=== PATIENT | male | born 1985 | race African-American/Black ===

== ENCOUNTER 2017-12-22 05:21 | Inpatient (IN) | payer SELFPAY ==
[2017-12-22] MEDS ORDERED: ACETAMINOPHEN 325 MG TABLET PO ONE (06:52)
[2017-12-22] MEDS ORDERED: NORMAL SALINE 1000 ML 1,000 ML IV ONE (07:44)
[2017-12-22] MEDS ORDERED: KETOROLAC TROMETHAMINE INJ/PF 30 MG/1 ML SDV IV ONE (07:44)
[2017-12-22 08:25] LABS: HEMOGLOBIN 14.1 g/dL (13.5-17.0); MEAN CORPUSCULAR HEMOGLOBIN 31.3 pg (27.0-33.4); MEAN CORPUSCULAR HGB CONC 34.5 g/dL (32.0-36.0); MEAN CORPUSCULAR VOLUME 91 fl (80-97); PLATELET COUNT 358 10^3/uL (150-450); RED BLOOD COUNT 4.52 10^6/uL (4.35-5.55); RED CELL DISTRIBUTION WIDTH 13.1 % (11.5-14.0); WHITE BLOOD COUNT 20.7 10^3/uL (4.0-10.5)
[2017-12-22 08:40] LABS: ALANINE AMINOTRANSFERASE 50 U/L (21-72); ALBUMIN 4.1 g/dL (3.5-5.0); ALKALINE PHOSPHATASE 79 U/L (38-126); ANION GAP 11 (5-19); ASPARTATE AMINO TRANSFERASE 34 U/L (17-59); BILIRUBIN,DIRECT 0.6 mg/dL (0.0-0.4); BILIRUBIN,TOTAL 3.3 mg/dL (0.2-1.3); BLOOD UREA NITROGEN 11 mg/dL (7-20); CALCIUM 9.8 mg/dL (8.4-10.2); CARBON DIOXIDE 24 mmol/L (22-30); CHLORIDE 101 mmol/L (98-107); GLUCOSE 102 mg/dL (75-110); POTASSIUM 4.2 mmol/L (3.6-5.0); SODIUM 135.9 mmol/L (137-145); TOTAL PROTEIN 7.2 g/dL (6.3-8.2)
[2017-12-22 08:44] LABS: ABSOLUTE LYMPHOCYTES# (MANUAL) 2.7 10^3/uL (0.5-4.7); ABSOLUTE MONOCYTES # (MANUAL) 0.8 10^3/uL (0.1-1.4); ABSOLUTE NEUTROPHILS# (MANUAL) 17.2 10^3/uL (1.7-8.2); BASOPHILS % (MANUAL) 0 % (0-2); EOSINOPHILS % (MANUAL) 0 % (0-6); LYMPHOCYTES % (MANUAL) 11 % (13-45); MONOCYTES % (MANUAL) 4 % (3-13); SEGMENTED NEUTROPHILS % (MAN) 83 % (42-78); TOTAL CELLS COUNTED 100
[2017-12-22 08:45] LABS: PLATELET COMMENT ADEQUATE; RBC MORPHOLOGY COMMENT NORMO-CYTIC/CHROMIC
--- NOTE | 2017-12-22 08:58 | ER Document Report ---
ED GI Bleed / Rectal Pain - General Chief Complaint: Rectal Pain Stated Complaint: RECTAL PAIN Time Seen by Provider: 12/22/17 07:11 Mode of Arrival: Ambulatory Information source: Patient Notes: Patient is a 32-year-old male who identifies as female who presents to the ER today for rectal pain 2 days. Patient states that she has a history of rectal abscess in October of this past year that was treated in the hospital with IV antibiotics for approximately 4 days and hydrocortisone. Patient states that she was told that the abscess would not come back. Patient had anal intercourse last week and states that she has had worsening pain since that time. She states yesterday she went to have a bowel movement and "white stuff came out." Patient was supposed to fly back to [place] where she lives today but states that it hurts too much to sit down and did not feel like she can sit on a plane for the long. She denies any fever but admits to chills and sweats. She denies any history of Crohn's or any other medical history. She is not going through any type of surgical sexual change at this time. Not on steroids. TRAVEL OUTSIDE OF THE [place] IN LAST 30 DAYS: No - Related Data Allergies/Adverse Reactions: No Known Allergies Allergy (Unverified 12/22/17 06:20) Past Medical History - General Information source: Patient - Social History Smoking Status: Unknown if Ever Smoked Chew tobacco use (# tins/day): No Frequency of alcohol use: None Drug Abuse: None Family History: Reviewed & Not Pertinent Patient has suicidal ideation: No Patient has homicidal ideation: No Renal/ Medical History: Denies: Hx Peritoneal Dialysis Review of Systems - Review of Systems Constitutional: See HPI EENT: No symptoms reported Cardiovascular: No symptoms reported Respiratory: No symptoms reported Gastrointestinal: See HPI Genitourinary: No symptoms reported Male Genitourinary: No symptoms reported Musculoskeletal: No symptoms reported Skin: No symptoms reported Hematologic/Lymphatic: No symptoms reported Neurological/Psychological: No symptoms reported Physical Exam - Vital signs Vitals: Temp Pulse Resp BP Pulse Ox 98.8 F 109 H 20 135/73 H 98 12/22/17 05:28 12/22/17 05:28 12/22/17 05:28 12/22/17 05:28 12/22/17 05:28 - Notes Notes: PHYSICAL EXAMINATION: GENERAL: Well-appearing and in no acute distress. HEAD: Atraumatic, normocephalic. EYES: Pupils equal round and reactive to light, extraocular movements intact, sclera anicteric, conjunctiva are normal. NECK: Normal range of motion, supple without lymphadenopathy LUNGS: CTAB and equal. No wheezes rales or rhonchi. HEART: Regular rate and rhythm without murmurs ABDOMEN: Soft, no tenderness. No guarding, no rebound BACK: no vertebral tenderness, normal ROM rectal: good tone, tender to exam, no obvious fluctance or induration noted GI/: no CVA tenderness EXTREMITIES: Normal range of motion, no pitting edema. No cyanosis. NEUROLOGICAL: Cranial nerves grossly intact. Normal sensory/motor exams. PSYCH: Normal mood, normal affect. SKIN: Warm, Dry, normal turgor, no rashes or lesions noted Course - Re-evaluation Re-evalutation: 12/22/17 10:03 Patient has a white count of 20,000, CT with IV contrast was performed as external exam is unremarkable and perirectal abscess including the rectal wall and levator muscle was seen on CAT scan today. Dr. Hernandez, surgeon on-call came down and did evaluate patient, wants to take to the operating room. Patient given IV fluids, Rocephin and clindamycin. - Vital Signs Vital signs: Temp Pulse Resp BP Pulse Ox 100.2 F 90 20 97/45 L 93 12/22/17 16:59 12/22/17 16:59 12/22/17 16:59 12/22/17 16:59 12/22/17 16:59 - Laboratory Result Diagrams: 12/22/17 08:01 12/22/17 08:01 Laboratory results interpreted by me: 12/22/17 12/22/17 08:01 08:01 WBC 20.7 H Seg Neuts % (Manual) 83 H Lymphocytes % (Manual) 11 L Abs Neuts (Manual) 17.2 H Sodium 135.9 L Total Bilirubin 3.3 H Direct Bilirubin 0.6 H Discharge - Discharge Clinical Impression: Perirectal abscess Condition: Stable Disposition: ADMITTED INPATIENT Admitting Provider: Surgicalist Unit Admitted: OR
--- NOTE | 2017-12-22 09:31 | RADIOLOGY REPORT (SQ) ---
EXAM DESCRIPTION: CT ABD/PELVIS WITH IV ONLY COMPLETED DATE/TIME: 12/22/2017 8:44 am REASON FOR STUDY: rectal pain/ hx rectal abscess (inside) COMPARISON: None. TECHNIQUE: CT scan of the abdomen and pelvis performed using helical scanning technique with dynamic intravenous contrast injection. No oral contrast. Images reviewed with lung, soft tissue, and bone windows. Reconstructed coronal and sagittal MPR images reviewed. Delayed images for evaluation of the urinary system also acquired. All images stored on PACS. All CT scanners at this facility use dose modulation, iterative reconstruction, and/or weight based d osing when appropriate to reduce radiation dose to as low as reasonably achievable (ALARA). [facility]: Dose Right [facility]: CareDose [facility]: Dose Right [facility]: Teradose 4D [facility]: [employer] CONTRAST TYPE AND DOSE: contrast/concentration: Isovue 370.00 mg/ml; Total Contrast Delivered: 100.0 ml; Total Saline Delivered: 70.0 ml RENAL FUNCTION: None required. The patient is less than 50 years old. RADIATION DOSE: CT Rad equipment meets quality standard of care and radiation dose reduction techniq ues were employed. CTDIvol: 18.2 - 20.3 mGy. DLP: 2391 mGy-cm.. LIMITATIONS: None. FINDINGS: LOWER CHEST: No significant findings. No nodules or infiltrates. LIVER: Normal size. No masses. No dilated ducts. SPLEEN: Normal size. No focal lesions. PANCREAS: No masses. No significant calcifications. No adjacent inflammation or peripancreatic fluid collections. Pancreatic duct not dilated. GALLBLADDER: No identified stones by CT criteria. No inflammatory changes to suggest cholecystitis. ADRENAL GLANDS: No significant masses or asymmetry. RIGHT KIDNEY AND URETER: No solid masses. No significant calcifications. No hydronephrosis or hyd roureter. LEFT KIDNEY AND URETER: No solid masses. No significant calcifications. No hydronephrosis or hydr oureter. AORTA AND VESSELS: No aneurysm. No dissection. Renal arteries, SMA, celiac without stenosis. RETROPERITONEUM: No retroperitoneal adenopathy, hemorrhage or masses. BOWEL AND PERITONEAL CAVITY: Perirectal abscess is noted on the left. There is a 2.8 x 2.8 x 1.4 cm abscess in the rectal wall. 3 x 2.4 x 1.5 cm abscess is noted in the left levator muscle. There is a 2.3 x 1.6 x 1 cm abscess in the lower levator beginning to extend into the infra levator region. N o definite fistula to the skin surface is identified. Some edema is seen in the pararectal fat exten ding superiorly the level of L5. Small nonenlarged pararectal lymph node is seen on the left. APPENDIX: Normal. PELVIS: No mass. No free fluid. Normal bladder. ABDOMINAL WALL: No masses. No hernias. BONES: No significant or acute findings. OTHER: No other significant finding. IMPRESSION: 1. Perirectal abscess on the left as described involving the rectal wall and the left l evator muscle. TECHNICAL DOCUMENTATION: JOB ID: [id number] Quality ID # [id number]: Final reports with documentation of one or more dose reduction techniques (e.g., Au tomated exposure control, adjustment of the mA and/or kV according to patient size, use of iterative reconstruction technique) 2010 [employer]- All Rights Reserved
[2017-12-22] MEDS ORDERED: CLINDAMYCIN 300 MG/D5W RTU 300 MG/50 ML RTUPB IV ONE (09:44)
--- NOTE | 2017-12-22 10:24 | PDOC H&P ---
History of Present Illness Patient complains of: Rectal pain History of Present Illness: MELE FERNANDEZ is a 32 year old male -32 year-old biological male, undergoing gender transformation, physically presents as a female, who presents emergency department complaining of anal pain , difficulty defecating, and fever chills with fluctuation. Gums are similar to an episode patient experienced 2 months ago while living in [place]. She was evaluated in the emergency department, had a CT scan at that time which showed an abscess, but according to her report unsuitable for drainage. She was started on IV then p.o. antibiotics and clinically improved. Since that time the patient is done well. Has been recipient of anal intercourse. Because of pain, and the above symptoms over the last several days, medical care was sought this morning. Examination by the emergency department PA revealed minimal findings on perianal examination, however there was tenderness on the rectal exam. Blood cell count was elevated to 20,000 CT scan of the abdomen and pelvis without oral contrast but with IV revealed complex ilya- rectal abscess involving the wall and levator muscle. Surgery was consulted, and patient advised admission for surgical intervention. Past Medical History Medical History: None Cardiac Medical History: Reports: None Pulmonary Medical History: Reports: None EENT Medical History: Reports: None Neurological Medical History: Reports: None Endocrine Medical History: Reports: None Renal/ Medical History: Reports: None Malignancy Medical History: Reports: None Musculoskeltal Medical History: Reports: None Skin Medical History: Reports: None Traumatic Medical History: Reports: None Hematology: Reports: None Past Surgical History Past Surgical History: Reports: None Social History Information Source: Patient Lives with: Friend Smoking Status: Unknown if Ever Smoked Frequency of Alcohol Use: None Family History Parental Family History Reviewed: Yes Children Family History Reviewed: Yes Sibling(s) Family History Reviewed.: Yes Medication/Allergy Allergies/Adverse Reactions: No Known Allergies Allergy (Unverified 12/22/17 06:20) Review of Systems Constitutional: ABSENT: chills, fever(s), headache(s), weight gain, weight loss Eyes: ABSENT: visual disturbances Ears: ABSENT: hearing changes Cardiovascular: ABSENT: chest pain, dyspnea on exertion, edema, orthropnea, palpitations Gastrointestinal: PRESENT: other - As per HPI; patient denies diarrhea constipation or any history of gastrointestinal problems Genitourinary: PRESENT: as per HPI, other - Patient has some dysuria. ABSENT: dysuria, hematuria Integumentary: ABSENT: rash, wounds Neurological: ABSENT: abnormal gait, abnormal speech, confusion, dizziness, focal weakness, syncope Psychiatric: ABSENT: anxiety, depression, homidical ideation, suicidal ideation Endocrine: ABSENT: cold intolerance, heat intolerance, polydipsia, polyuria Hematologic/Lymphatic: ABSENT: easy bleeding, easy bruising Physical Exam General appearance: PRESENT: no acute distress Head exam: PRESENT: atraumatic Eye exam: PRESENT: EOMI Mouth exam: PRESENT: moist Neck exam: PRESENT: full ROM Respiratory exam: PRESENT: clear to auscultation aayush Cardiovascular exam: PRESENT: RRR Pulses: PRESENT: normal dorsalis pedis pul, +1 pedal pulses bilateral Rectal exam: PRESENT: other - Perianal tissue unremarkable; I did not digitalize the anal canal. Extremities exam: PRESENT: full ROM Musculoskeletal exam: PRESENT: ambulatory Neurological exam: PRESENT: alert, altered, awake, oriented to person, oriented to place, oriented to time, oriented to situation Psychiatric exam: PRESENT: appropriate affect Results Laboratory Results: 12/22/17 08:01 12/22/17 08:01 12/22/17 12/22/17 08:01 08:01 WBC 20.7 H RBC 4.52 Hgb 14.1 Hct 41.0 MCV 91 MCH 31.3 MCHC 34.5 RDW 13.1 Plt Count 358 Seg Neutrophils % Not Reportable Lymphocytes % Not Reportable Monocytes % Not Reportable Eosinophils % Not Reportable Basophils % Not Reportable Absolute Neutrophils Not Reportable Absolute Lymphocytes Not Reportable Absolute Monocytes Not Reportable Absolute Eosinophils Not Reportable Absolute Basophils Not Reportable Sodium 135.9 L Potassium 4.2 Chloride 101 Carbon Dioxide 24 Anion Gap 11 BUN 11 Creatinine 1.03 Est GFR ( Amer) > 60 Est GFR (Non-Af Amer) > 60 Glucose 102 Calcium 9.8 Total Bilirubin 3.3 H AST 34 ALT 50 Alkaline Phosphatase 79 Total Protein 7.2 Albumin 4.1 Impressions: Abdomen/Pelvis CT 12/22/17 07:44 IMPRESSION: 1. Perirectal abscess on the left as described involving the rectal wall and the left levator muscle. Assessment & Plan - Diagnosis (1) Perirectal abscess Is this a current diagnosis for this admission?: Yes Plan: Complex perirectal abscess based on CT scan; persisting for several months; no previous surgical intervention risk factors include anal intercourse. Plan: 1. Admission for observation, n.p.o., IV fluids, IV antibiotics 2. I explained to the patient the pathoanatomy of ilya-anal and perirectal abscesses; this particular situation is complex involving to the rectal compartments, the rectal wall, and the deeper levator musculature. Explained that surgical intervention will be exam under anesthesia and drainage of; additionally, loop drains, seton, and packing may also be required. Also explained that this is a damage control type intervention and additional procedures may be required in the weeks and months ahead. I explained risks of the procedure including bleeding, infection, incontinence to gas and stool. I believe the patient understands and agrees to proceed. - Time Time Spent: 30 to 50 Minutes Smoking Cessation Education: 3 to 10 minutes Anticipated discharge: Home - Inpatient Certification Based on my medical assessment, after consideration of the patient's comorbidities, presenting symptoms, or acuity I expect that the services needed warrant INPATIENT care.: Yes I certify that my determination is in accordance with my understanding of Medicare's requirements for reasonable and necessary INPATIENT services [42 CFR 412.3e].: Yes Medical Necessity: Need For IV Fluids, Need for Pain Control, Need for IV Antibiotics, Need for Surgery
[2017-12-22] MEDS ORDERED: BUPIVACAINE HCL 0.25 % INJ/PF (2.5 MG/1 ML) 30 ML VIAL ONE (10:43)
[2017-12-22] MEDS ORDERED: CEFTRIAXONE INJ 1000 MG VIAL ONE (10:49)
[2017-12-22] MEDS ORDERED: CEFTRIAXONE 1 GM/D5W RTU 1 GM/50 ML RTUPB IV ONE (11:00)
[2017-12-22] MEDS ORDERED: MIDAZOLAM 2 MG/2 ML INJ ONE (11:59)
[2017-12-22] MEDS ORDERED: PROPOFOL INJ 200 MG/20 ML VIAL IV ONE (11:59)
[2017-12-22] MEDS ORDERED: HYDROMORPHONE HCL INJ/PF 2 MG/ML AMPULE ONE (12:00)
[2017-12-22] MEDS ORDERED: FENTANYL CITRATE INJ/PF 100 MCG/2 ML AMPUL ONE (13:46)
[2017-12-22] MEDS ORDERED: MORPHINE SULFATE 10 MG/ML INJ IV PRN (13:54)
[2017-12-22] MEDS ORDERED: PROMETHAZINE HCL INJ 25 MG/1 ML VIAL IV PRN ×2 (13:54)
[2017-12-22] MEDS ORDERED: FENTANYL CITRATE INJ/PF 100 MCG/2 ML AMPUL IV PRN ×3 (13:54)
[2017-12-22] MEDS ORDERED: OXYCODONE-ACETAMINOPHEN 5-325 MG TABLET PO PRN ×2 (13:54)
[2017-12-22] MEDS ORDERED: DIPHENHYDRAMINE HCL 50 MG/ML VIAL IV PRN (13:54)
[2017-12-22] MEDS ORDERED: MEPERIDINE HCL/PF INJ 25 MG/1 ML DISP.SYRIN IV PRN (13:54)
--- NOTE | 2017-12-22 14:23 | Operative Report ---
Operative Report DATE OF SURGERY: 12/22/17 PREOPERATIVE DIAGNOSIS: Deep perirectal abscess, supra sphincteric involving the left posterior lateral levator ani muscle POSTOPERATIVE DIAGNOSIS: Same OPERATION: 1. Examination under anesthesia. 2. Anoscopy. 3. Drainage of deep super sphincteric ilya-rectal abscess extending into the levator ani muscle. 4. Placement of 20 Maori Malecot drain transanally into abscess cavity SURGEON: NANNETTE ANN ANESTHESIA: GA TISSUE REMOVED OR ALTERED: Pus COMPLICATIONS: None ESTIMATED BLOOD LOSS: 15 cc INTRAOPERATIVE FINDINGS: See below PROCEDURE: The patient was seen in the preop holding area then taken the main operating room where general anesthesia was induced. The patient was rolled in the prone jackknife position buttocks spread, taped open widely. The buttock and perineum were prepped and draped sterile fashion. Surgical plan and surgical timeout were conducted. Perianal tissue grossly unremarkable. To the left of the median raphae was a very small 1 x 2 mm slightly excoriated area of skin this appeared to be completely unrelated to indications for operation. This may have been a friction related finding. I dilated up the anal rectal canal to admit to index fingers. I then placed the bullet anoscope into position. With the radiographic imaging in the operating room for my review, I palpated deep into the rectal canal proximally 8 cm from the anal verge a fullness posterior laterally. I felt this corresponded to the point of maximum tension into the rectal canal, and would be suitable for drainage from this vantage point. Of note there was no evidence of perianal swelling edema erythema or mass. We were clearly above the external sphincter consistent with the radiographic findings of a super sphincteric abscess. I made a longitudinal incision with a #10 blade in the rectal mucosa then using a Pilar clamp, tied into the abscess cavity. I immediately got into the pus filled cavity and drained approximately 40 cc of andrey pus which was sent for culture and sensitivity. I then inserted my index finger into wall of the rectum and then deep to the wall, into the levator ani space breaking up the additional loculation. The surrounding tissue was extremely firm and fibrotic. We then irrigated out this entire tract with 500 cc of saline. I felt the drainage procedure was complete. I spoke with my colleague Dr. Davon Schmidt who recommended a drain placement and I thought this was a reasonable strategy to keep this pretty open into the anal canal. We brought onto the field a 20 Maori Malecot catheter, tucked the mushroom end into the abscess cavity, trimmed the catheter then secured the catheter to the patient's perianal tissue with 2-0 Prolene suture. Injected small Marcaine into the perianal tissue, and deemed the operation completed. Sponge and needle counts are correct. Dressings were applied. Patient was taken recovery in stable condition.
[2017-12-22] MEDS ORDERED: ONDANSETRON HCL INJ/PF 4 MG/2 ML SDV ONE (15:07)
[2017-12-22] MEDS ORDERED: SUCCINYLCHOLINE CHLORIDE INJ 200 MG/10 ML VIAL ONE (15:07)
[2017-12-22] MEDS ORDERED: DOCUSATE SODIUM 100 MG CAPSULE PO SCH (18:00)
[2017-12-22] MEDS ORDERED: ACETAMINOPHEN INJ/PF 1000 MG/100 ML SDV IV SCH (18:00)
[2017-12-22] MEDS ORDERED: DEXTROSE 5%-LACTATED RINGERS 1,000 ML IV PRN (18:37)
[2017-12-22] MEDS: ACETAMINOPHEN 100 ML IV SCH ×2 (18:40→23:49)
[2017-12-22] MEDS: DOCUSATE SODIUM 100 MG CAPSULE PO SCH (18:41)
[2017-12-22] MEDS: PIPERACILLIN SODIUM/TAZOBACTAM 3.375 GM in NORMAL SALINE 100 ML IV SCH (22:07)
[2017-12-23] MEDS: ACETAMINOPHEN 100 ML IV SCH (06:07)
[2017-12-23] MEDS: PIPERACILLIN SODIUM/TAZOBACTAM 3.375 GM in NORMAL SALINE 100 ML IV SCH ×3 (06:08→23:35)
[2017-12-23] MEDS: DOCUSATE SODIUM 100 MG CAPSULE PO SCH ×2 (09:23→18:08)
[2017-12-23] MEDS ORDERED: DOCUSATE SODIUM 100 MG CAPSULE PO SCH (10:00)
[2017-12-23] MEDS ORDERED: ACETAMINOPHEN 325 MG TABLET PO PRN (11:08)
[2017-12-23] MEDS ORDERED: DEXTROSE 5%-LACTATED RINGERS 1,000 ML IV PRN (11:12)
--- NOTE | 2017-12-23 11:31 | PDOC PROGRESS REPORT ---
Subjective Progress Note for:: 12/23/17 Subjective:: patient feels weak and has poor appetite, denies pain, and had a fever spike last evening after surgery Reason For Visit: PERIRECTAL ABSCESS,COMPLEX Physical Exam Vital Signs: Temp Pulse Resp BP Pulse Ox 99.1 F 86 20 99/50 L 97 12/23/17 07:55 12/23/17 07:55 12/23/17 07:55 12/23/17 07:55 12/23/17 07:55 Intake & Output 12/22/17 12/23/17 12/24/17 06:59 06:59 06:59 Intake Total 1330 Output Total 1710 Balance -380 Weight 103.2 kg General appearance: PRESENT: no acute distress, other - depressed Rectal exam: PRESENT: deferred, other - perianum normal, drain sutured to the right perianum with serosanguinous drainage Results Impressions: Abdomen/Pelvis CT 12/22/17 07:44 IMPRESSION: 1. Perirectal abscess on the left as described involving the rectal wall and the left levator muscle. Assessment & Plan - Plan Summary Plan Summary: A/ POD #1 s/p I&D right suprasfincteric rectal abscess with drain placement VSS, AF Blood work pending preliminary cx are positive for group A streptococcus PE: perianum unremarkable with drain in place P/ Advance diet to low residue diet decrease IVF and heplock if she tolerates po.. well Continue IV antibiotics Check blood work
[2017-12-23 12:10] LABS: ABSOLUTE BASOPHILS # (AUTO) 0.1 10^3/uL (0.0-0.2); ABSOLUTE EOSINOPHILS # (AUTO) 0.2 10^3/uL (0.0-0.6); ABSOLUTE LYMPHOCYTES (AUTO) 2.3 10^3/uL (0.5-4.7); ABSOLUTE MONOCYTES (AUTO) 1.1 10^3/uL (0.1-1.4); ABSOLUTE NEUT (AUTO) 11.1 10^3/uL (1.7-8.2); BASOPHILS % (AUTO) 0.7 % (0-2); HEMATOCRIT 38.2 % (37.9-51.0); HEMOGLOBIN 12.8 g/dL (13.5-17.0); LYMPHOCYTES % (AUTO) 15.4 % (13-45); MEAN CORPUSCULAR HEMOGLOBIN 30.7 pg (27.0-33.4); MEAN CORPUSCULAR HGB CONC 33.6 g/dL (32.0-36.0); MEAN CORPUSCULAR VOLUME 91 fl (80-97); MONOCYTES % (AUTO) 7.3 % (3-13); PLATELET COUNT 304 10^3/uL (150-450); RED BLOOD COUNT 4.18 10^6/uL (4.35-5.55); RED CELL DISTRIBUTION WIDTH 13.3 % (11.5-14.0); SEGMENTED NEUTROPHILS % (AUTO) 75.6 % (42-78); TOTAL CELLS COUNTED % (AUTO) 100 %; WHITE BLOOD COUNT 14.6 10^3/uL (4.0-10.5)
[2017-12-23 12:29] LABS: ANION GAP 6 (5-19); BLOOD UREA NITROGEN 6 mg/dL (7-20); CALCIUM 8.4 mg/dL (8.4-10.2); CARBON DIOXIDE 28 mmol/L (22-30); CHLORIDE 104 mmol/L (98-107); GLUCOSE 91 mg/dL (75-110); POTASSIUM 3.8 mmol/L (3.6-5.0)
[2017-12-23] MEDS: KETOROLAC TROMETHAMINE INJ/PF 30 MG/1 ML SDV IV PRN (23:36)
[2017-12-24 05:34] LABS: ABSOLUTE BASOPHILS # (AUTO) 0.1 10^3/uL (0.0-0.2); ABSOLUTE EOSINOPHILS # (AUTO) 0.2 10^3/uL (0.0-0.6); ABSOLUTE LYMPHOCYTES (AUTO) 2.5 10^3/uL (0.5-4.7); ABSOLUTE MONOCYTES (AUTO) 0.7 10^3/uL (0.1-1.4); ABSOLUTE NEUT (AUTO) 6.9 10^3/uL (1.7-8.2); BASOPHILS % (AUTO) 0.7 % (0-2); EOSINOPHILS % (AUTO) 2.3 % (0-6); HEMATOCRIT 36.8 % (37.9-51.0); HEMOGLOBIN 12.5 g/dL (13.5-17.0); LYMPHOCYTES % (AUTO) 24.2 % (13-45); MEAN CORPUSCULAR HEMOGLOBIN 31.1 pg (27.0-33.4); MEAN CORPUSCULAR VOLUME 91 fl (80-97); MONOCYTES % (AUTO) 7.1 % (3-13); PLATELET COUNT 294 10^3/uL (150-450); RED BLOOD COUNT 4.03 10^6/uL (4.35-5.55); RED CELL DISTRIBUTION WIDTH 13.4 % (11.5-14.0); SEGMENTED NEUTROPHILS % (AUTO) 65.7 % (42-78); TOTAL CELLS COUNTED % (AUTO) 100 %; WHITE BLOOD COUNT 10.5 10^3/uL (4.0-10.5)
[2017-12-24 06:03] LABS: ANION GAP 9 (5-19); BLOOD UREA NITROGEN 7 mg/dL (7-20); CALCIUM 8.4 mg/dL (8.4-10.2); CARBON DIOXIDE 25 mmol/L (22-30); CHLORIDE 107 mmol/L (98-107); GLUCOSE 101 mg/dL (75-110); POTASSIUM 3.9 mmol/L (3.6-5.0); SODIUM 140.7 mmol/L (137-145)
[2017-12-24] MEDS: PIPERACILLIN SODIUM/TAZOBACTAM 3.375 GM in NORMAL SALINE 100 ML IV SCH ×3 (06:16→21:38)
[2017-12-24] MEDS: DOCUSATE SODIUM 100 MG CAPSULE PO SCH ×2 (10:34→17:25)
[2017-12-24] MEDS: KETOROLAC TROMETHAMINE INJ/PF 30 MG/1 ML SDV IV PRN (15:17)
--- NOTE | 2017-12-24 16:12 | PDOC PROGRESS REPORT ---
Subjective Progress Note for:: 12/24/17 Subjective:: no complaints of except for painful defecation Reason For Visit: PERIRECTAL ABSCESS,COMPLEX Physical Exam Vital Signs: Temp Pulse Resp BP Pulse Ox 98.9 F 84 16 127/69 H 95 12/24/17 15:21 12/24/17 15:21 12/24/17 15:21 12/24/17 15:21 12/24/17 15:21 Intake & Output 12/23/17 12/24/17 12/25/17 06:59 06:59 06:59 Intake Total 1330 829 Output Total 1710 1210 Balance -380 -381 Weight 103.2 kg 106 kg Rectal exam: PRESENT: other - no erythema or pain at palpation, presence of drain sutured to the right perianum Results Laboratory Results: 12/24/17 05:06 12/24/17 05:06 12/24/17 12/24/17 05:06 05:06 WBC 10.5 RBC 4.03 L Hgb 12.5 L Hct 36.8 L MCV 91 MCH 31.1 MCHC 34.0 RDW 13.4 Plt Count 294 Seg Neutrophils % 65.7 Lymphocytes % 24.2 Monocytes % 7.1 Eosinophils % 2.3 Basophils % 0.7 Absolute Neutrophils 6.9 Absolute Lymphocytes 2.5 Absolute Monocytes 0.7 Absolute Eosinophils 0.2 Absolute Basophils 0.1 Sodium 140.7 Potassium 3.9 Chloride 107 Carbon Dioxide 25 Anion Gap 9 BUN 7 Creatinine 0.87 Est GFR ( Amer) > 60 Est GFR (Non-Af Amer) > 60 Glucose 101 Calcium 8.4 Impressions: Abdomen/Pelvis CT 12/22/17 07:44 IMPRESSION: 1. Perirectal abscess on the left as described involving the rectal wall and the left levator muscle. Assessment & Plan - Plan Summary Plan Summary: A/ POD #1 s/p drainage of suprasphincteric rectal abscess minimal drain output P/ continue IV Zosyn Waiting for culture results patient can be discharged to home after culture results are final Drain to be left in place x 2 weeks patient counseled to see a colo-rectal surgeon when she returns to [place]
[2017-12-25] MEDS: PIPERACILLIN SODIUM/TAZOBACTAM 3.375 GM in NORMAL SALINE 100 ML IV SCH (05:43)
[2017-12-25] MEDS: DOCUSATE SODIUM 100 MG CAPSULE PO SCH (11:18)
[2017-12-25 12:54] VITALS: BP 99/44
== END 2017-12-25 13:35 | disposition home or self-care (01) | DRG 395 ==
LOC: ER 05:21 → EH 10:37 → INTOOBSV 10:37 → OBSVTOIN 10:37 → 2N 15:24
PROVIDERS: ADMIT Surgery; ATTEND Surgery
PROC: 0D9P80Z Drainage of Rectum with Drainage Device, Via Natural or Artificial Opening Endoscopic (ICD-10-PCS; principal; 2017-12-22 11:30)
DX: K61.1 Rectal abscess (principal)
CPT/HCPCS: 36415; 74177; 80048; 80053; 85025; 87040; 87070; 87075; 87077; 87186; 87205; 902; 96361; 96365; 96375; 99285; C1729; J0131; J0330; J0696; J1170; J1885; J2250; J2405; J2543; J2704; J3010; J3490; J7030